=== PATIENT | female | born 1975 | race Two or more races ===

== ENCOUNTER 2024-10-03 08:41 | Emergency (ER) | payer BC ==
[~2024-10-03] VITALS: Ht 162.6 cm; Wt 104.3 kg
[2024-10-03] MEDS ORDERED: CYMBALTA60 MG PO (08:53)
[2024-10-03] MEDS ORDERED: VALACYCLOVIR1000 MG PO (08:54)
[2024-10-03] MEDS ORDERED: WELLBUTRIN XL300 MG PO (08:54)
[2024-10-03] MEDS ORDERED: CEFTRIAXONE SODIUM 1,000 MG VIAL IV ONE (09:15)
[2024-10-03 09:36] LABS: HEMATOCRIT 39.5 % (36.0-45.00); HEMOGLOBIN 13.7 g/dL (12.0-15.00); MEAN CELL VOLUME 95.5 fL (80.00-100.00); MEAN CORPUSCULAR HEMOGLOBIN 33.1 pg (27.00-32.0); MEAN CORPUSCULAR HGB CONC 34.7 g/dl (32.0-36.0); PLATELET COUNT 343 K/uL (150-450); RED BLOOD COUNT 4.13 M/uL (4.00-6.00); RED CELL DISTRIBUTION WIDTH 14.4 % (11.5-14.5)
== END 2024-10-03 11:25 | disposition home or self-care (01) ==
LOC: ER 08:43
PROVIDERS: Emergency Medicine
DX: L01.09 Other impetigo (principal); F32.89 Other specified depressive episodes